=== PATIENT | female | born 1965 | race Caucasian/White ===

== ENCOUNTER → 2019-08-02 | Outpatient (CLI) | payer OTHER ==
[~2019-08-02] MED LIST: HYDACE5 PO; IBUP800 PO
[2019-08-03 10:31] LABS: Candida species (DNA Probe) Negative (NEGATIVE); G. vaginalis (DNA Probe) Negative (NEGATIVE); T. vaginalis (DNA Probe) Positive (NEGATIVE)
== END ==
LOC: LAB SHORT 17:20 → LAB 17:20
PROVIDERS: Nurse Practitioner Family
DX: N89.8 Other specified noninflammatory disorders of vagina (principal)
CPT/HCPCS: 87480; 87510; 87660

== ENCOUNTER 2019-08-29 18:06 | Emergency (ER) | payer OTHER ==
[~2019-08-29] VITALS: Ht 167.6 cm; Wt 59.0 kg
== END 2019-08-29 21:55 | disposition home or self-care (01) ==
LOC: ER 18:06
DX: S80.02XA Contusion of left knee, initial encounter (principal); Z88.0 Allergy status to penicillin; W20.8XXA Other cause of strike by thrown, projected or falling object, initial encounter
CPT/HCPCS: 73562-LT; 99283-25

== ENCOUNTER 2021-09-08 11:09 | Emergency (ER) | payer OTHER ==
[~2021-09-08] VITALS: Ht 167.6 cm; Wt 59.0 kg
[2021-09-08 12:00] LABS: BASOPHILS ABSOLUTE AUTO 0.04 K/mm3 (0.00-0.23); BASOPHILS PERCENT AUTO 1 % (0-2); EOSINOPHILS ABSOLUTE AUTO 0.12 K/mm3 (0.00-0.68); EOSINOPHILS PERCENT AUTO 2 % (0-6); Hematocrit 44.5 % (33.0-51.0); Hemoglobin 14.7 g/dL (11.5-16.0); IMMATURE GRAN ABSOLUTE AUTO 0.01 K/mm3 (0.00-0.10); IMMATURE GRAN PERCENT AUTO 0 % (0-1); LYMPHOCYTES ABSOLUTE AUTO 2.53 K/mm3 (0.84-5.20); LYMPHOCYTES PERCENT AUTO 33 % (21-46); MONOCYTES ABSOLUTE AUTO 0.64 K/mm3 (0.16-1.47); MONOCYTES PERCENT AUTO 8 % (4-13); Mean Corpuscular HGB 30.1 pg (26.0-34.0); Mean Corpuscular Volume 91 fL (80-100); Mean Platelet Volume 9.4 fL (9.1-12.4); NEUTROPHILS ABSOLUTE AUTO 4.41 K/mm3 (1.96-9.15); NEUTROPHILS PERCENT AUTO 57 % (41-73); Platelet Count 341 K/mm3 (150-400); RDW Coefficient Variation 12.9 % (11.7-14.2); RDW Standard Deviation 42.6 fL (35.1-46.3); Red Blood Cell Count 4.89 M/mm3 (3.80-5.20); White Blood Cell Count 7.75 K/mm3 (4.00-11.30)
[2021-09-08 12:19] LABS: Albumin, Blood 4.1 g/dL (3.4-5.0); Albumin/Globulin Ratio 1.2 (0.8-1.8); Bilirubin, Total 0.5 mg/dL (0.1-1.0); Bun/Creatinine Ratio 25.1 (12.0-20.0); Calcium, Blood 9.6 mg/dL (8.5-10.1); Creatinine, Blood 0.76 mg/dL (0.40-1.00); Globulin, Blood 3.5 g/dL (2.2-4.0); Potassium, Blood 3.7 mmol/L (3.5-5.5); Total Protein, Blood 7.6 g/dL (6.4-8.2)
[2021-09-08] MEDS ORDERED: Aspirin EC81 MG PO (14:27)
[2021-09-08] MEDS ORDERED: Toprol Xl25 MG PO (14:27)
== END 2021-09-08 15:34 | disposition home or self-care (01) ==
LOC: ER 11:09
PROVIDERS: Physician Assistant
DX: I63.89 Other cerebral infarction (principal); R47.1 Dysarthria and anarthria; G81.91 Hemiplegia, unspecified affecting right dominant side; I10 Essential (primary) hypertension; Z88.0 Allergy status to penicillin; Z79.899 Other long term (current) drug therapy
CPT/HCPCS: 36415; 70450; 71045; 80053; 85025; 93005; 93010; A9270

== ENCOUNTER → 2021-10-06 | Outpatient (CLI) | payer OTHER ==
[~2021-10-06] MED LIST changes: +Aspirin EC81 MG PO; +Toprol Xl25 MG PO
[2021-10-09 09:20] LABS: Stool Occult Bld Immuno 1 Positive (NEGATIVE)
== END | disposition home or self-care (01) ==
LOC: LAB SHORT 08:00 → LAB 08:00
PROVIDERS: Registered Nurse
DX: Z12.12 Encounter for screening for malignant neoplasm of rectum (principal); Z12.11 Encounter for screening for malignant neoplasm of colon
CPT/HCPCS: G0328

== ENCOUNTER 2022-08-07 08:27 | Day surgery (SDC) | payer OTHER ==
[~2022-08-07] VITALS: Ht 167.6 cm; Wt 60.0 kg
[2022-08-07] MEDS ORDERED: NAPR500 (08:39)
[2022-08-07] MEDS ORDERED: ELIQUIS2.5 MG (08:39)
[2022-08-07 10:05] VITALS: BP 132/80
--- NOTE | 2022-08-07 10:23 | NUR ---
08/07/22 1023 Mohini Vazqeuz LATE ENTRY: PT VERY TEARFUL SHE HAD POOR PREP AND THE PROCEDURE NEEDS TO BE REPEATED. SHE WAS TEARFUL UPON DISCHARGE WELL.
== END 2022-08-07 10:23 | disposition home or self-care (01) ==
LOC: ORSCSDS 08:27
PROVIDERS: Internal Medicine Gastroenterology
PROC: 0DJD8ZZ Inspection of Lower Intestinal Tract, Via Natural or Artificial Opening Endoscopic (ICD-10-PCS; principal; 2022-08-07 09:30)
DX: R19.5 Other fecal abnormalities (principal); I10 Essential (primary) hypertension; K59.00 Constipation, unspecified; I63.9 Cerebral infarction, unspecified; F17.210 Nicotine dependence, cigarettes, uncomplicated; Z79.82 Long term (current) use of aspirin; Z79.01 Long term (current) use of anticoagulants; Z79.899 Other long term (current) drug therapy
CPT/HCPCS: J2704; J7120

== ENCOUNTER 2024-08-10 20:40 | Inpatient (IN) | payer OTHER ==
[~2024-08-10] VITALS: Ht 170.2 cm; Wt 66.1 kg
[~2024-08-10 20:40] MED LIST changes: +ELIQUIS2.5 MG PO; +NAPR500
[2024-08-10 21:37] LABS: BASOPHILS ABSOLUTE AUTO 0.03 K/mm3 (0.00-0.23); BASOPHILS PERCENT AUTO 0 % (0-2); EOSINOPHILS ABSOLUTE AUTO 0.12 K/mm3 (0.00-0.68); EOSINOPHILS PERCENT AUTO 2 % (0-6); Hematocrit 38.6 % (33.0-51.0); Hemoglobin 13.3 g/dL (11.5-16.0); IMMATURE GRAN ABSOLUTE AUTO 0.01 K/mm3 (0.00-0.10); IMMATURE GRAN PERCENT AUTO 0 % (0-1); LYMPHOCYTES ABSOLUTE AUTO 1.82 K/mm3 (0.84-5.20); LYMPHOCYTES PERCENT AUTO 26 % (21-46); MONOCYTES ABSOLUTE AUTO 0.39 K/mm3 (0.16-1.47); MONOCYTES PERCENT AUTO 6 % (4-13); Mean Corpuscular HGB 30.7 pg (26.0-34.0); Mean Corpuscular HGB Conc 34.5 g/dL (31.5-36.5); Mean Corpuscular Volume 89 fL (80-100); Mean Platelet Volume 9.3 fL (9.1-12.4); NEUTROPHILS ABSOLUTE AUTO 4.59 K/mm3 (1.96-9.15); NEUTROPHILS PERCENT AUTO 66 % (41-73); Platelet Count 330 K/mm3 (150-400); RDW Coefficient Variation 12.8 % (11.7-14.2); RDW Standard Deviation 42.3 fL (35.1-46.3); Red Blood Cell Count 4.33 M/mm3 (3.80-5.20); White Blood Cell Count 6.96 K/mm3 (4.00-11.30)
[2024-08-10 22:01] LABS: Albumin, Blood 3.7 g/dL (3.4-5.0); Bilirubin, Total 0.2 mg/dL (0.1-1.0); Bun/Creatinine Ratio 24.5 (12.0-20.0); Calcium, Blood 8.7 mg/dL (8.5-10.1); Creatinine, Blood 0.78 mg/dL (0.40-1.00); Globulin, Blood 3.6 g/dL (2.2-4.0); Potassium, Blood 3.6 mmol/L (3.5-5.5); Total Protein, Blood 7.3 g/dL (6.4-8.2)
[2024-08-10] MEDS ORDERED: LOSA50 PO (22:43)
[2024-08-10] MEDS ORDERED: AMLODIPINE BES2.5 MG PO (22:44)
[2024-08-10] MEDS ORDERED: METO100ER PO (22:44)
[2024-08-10] MEDS ORDERED: Acetaminophen 325 MG TABLET PO PRN (23:25)
[2024-08-10] MEDS ORDERED: Ondansetron HCl 2 MG / ML 2ML Vial IV PRN (23:25)
[2024-08-10 23:28] LABS: Source, Urine Clean Catch
[2024-08-10 23:33] LABS: Bilirubin, Urine Neg (Neg); Blood, Urine 4+ (Neg); Glucose Qualitative, Urine Neg (Neg); Ketones, Urine Neg (Neg); Leukocyte Esterase, Urine 1+ (Neg); Nitrite, Urine Neg (Neg); Protein, Urine 1+ (Neg); Urobilinogen, Urine NORM (Normal)
[2024-08-10 23:46] LABS: Appearance, Urine Clear (Clear); Color, Urine Pale Yellow (P-Yellow)
[2024-08-10 23:47] LABS: Bacteria Mod /hpf; Squamous Epithelial Cells Few /hpf (Few); White Blood Cells, Urine 0-2 /hpf (0-5)
[2024-08-11] VITALS (8 sets, daily range): BP systolic 142–168; BP diastolic 95–111
[2024-08-11] MEDS ORDERED: ZYRTEC-D ER 51 EACH PO (01:38)
--- NOTE | 2024-08-11 02:44 | NUR ---
MRI SCREENING FORM FILLED OUT WITH FAMILY AND FAXED TO IMAGING.
[2024-08-11 06:10] LABS: BASOPHILS ABSOLUTE AUTO 0.02 K/mm3 (0.00-0.23); BASOPHILS PERCENT AUTO 0 % (0-2); EOSINOPHILS ABSOLUTE AUTO 0.15 K/mm3 (0.00-0.68); EOSINOPHILS PERCENT AUTO 2 % (0-6); Hematocrit 40.7 % (33.0-51.0); Hemoglobin 13.3 g/dL (11.5-16.0); IMMATURE GRAN ABSOLUTE AUTO 0.01 K/mm3 (0.00-0.10); IMMATURE GRAN PERCENT AUTO 0 % (0-1); LYMPHOCYTES PERCENT AUTO 29 % (21-46); MONOCYTES ABSOLUTE AUTO 0.46 K/mm3 (0.16-1.47); MONOCYTES PERCENT AUTO 7 % (4-13); Mean Corpuscular HGB 29.6 pg (26.0-34.0); Mean Corpuscular HGB Conc 32.7 g/dL (31.5-36.5); Mean Corpuscular Volume 90 fL (80-100); Mean Platelet Volume 9.4 fL (9.1-12.4); NEUTROPHILS ABSOLUTE AUTO 3.95 K/mm3 (1.96-9.15); NEUTROPHILS PERCENT AUTO 61 % (41-73); Platelet Count 306 K/mm3 (150-400); RDW Coefficient Variation 12.8 % (11.7-14.2); RDW Standard Deviation 42.9 fL (35.1-46.3); White Blood Cell Count 6.49 K/mm3 (4.00-11.30)
--- NOTE | 2024-08-11 06:14 | NUR ---
SHIFT SUMMARY; AFTER ADMIT, PATIENT HAS BEEN SLEEPING WELL. FAMILY WENT HOME. UP TO BS WITH 2 ASSIST, NO WALKER. JUST PIVOT. SCDS APPLIED. BP ELEVATED, DR JOSEPH INFORMED, NO NEW ORDERS GIVEN. TELE SR 61.
[2024-08-11 06:37] LABS: Albumin, Blood 3.7 g/dL (3.4-5.0); Albumin/Globulin Ratio 1.2 (0.8-1.8); Bilirubin, Total 0.3 mg/dL (0.1-1.0); Bun/Creatinine Ratio 21.1 (12.0-20.0); Calcium, Blood 8.8 mg/dL (8.5-10.1); Creatinine, Blood 0.71 mg/dL (0.40-1.00); Globulin, Blood 3.1 g/dL (2.2-4.0); Potassium, Blood 3.1 mmol/L (3.5-5.5); Total Protein, Blood 6.8 g/dL (6.4-8.2)
[2024-08-11 06:44] LABS: CHOL/HDL RATIO 2.8; Cholesterol 182 mg/dL (50-200); HDL Cholesterol 66 mg/dL (>39); LDL/HDL RATIO 1.4; Low Density Lipoprotein Chol 90 mg/dL (0-110); Triglycerides 128 mg/dL (30-160); Very Low Density Lipoprot Chol 25 mg/dL (6-32)
[2024-08-11] MEDS ORDERED: Potassium Chloride 20 MEQ TabCR PO ONE ×2 (08:10→13:55)
[2024-08-11] MEDS ORDERED: Atorvastatin 40 MG Tab PO SCH (09:00)
[2024-08-11] MEDS ORDERED: Aspirin 81 MG Chew PO SCH (09:00)
[2024-08-11] MEDS ORDERED: Apixaban 5 MG Tab PO SCH (09:00)
--- NOTE | 2024-08-11 17:58 | NUR ---
A&OX4, FULL CODE, TELE SINUS RHYTHM @62, USES WALKER IN ROOM WITH 1 PERSON ASSIST, LEFT SIDED WEAKNESS DUE TO PRIOR STROKES, SPEECH EVAL & FOOD BITE SIZE, MEDS WITH APPLE SAUCE & ONE AT A TIME, MRI TODAY & RESULTS WITH CVA, IV IN LEFT HAND, SCDS APPLIED ON LOWER EXTREMITIES, PT/OT EVAL & SUGGESTING HOME HEALTH WHEN DC, NO OTHER CONCERNS AT THIS TIME.
[2024-08-12 04:12] VITALS: BP 133/88
--- NOTE | 2024-08-12 05:53 | NUR ---
SHIFT SUMMARY; PATIENT SLEPT IN LONG INTERVALS, TELE SR 76. GAVE TYLENOT PRN DOSE BEDTIME FOR GENERAL DISCOMFORTS
[2024-08-12 07:29] VITALS: BP 152/103
[2024-08-12 09:28] LABS: Calcium, Blood 8.9 mg/dL (8.5-10.1); Creatinine, Blood 0.78 mg/dL (0.40-1.00); Potassium, Blood 3.6 mmol/L (3.5-5.5)
[2024-08-12] MEDS ORDERED: Losartan Potassium 25 MG Tab PO SCH (11:00)
[2024-08-12] MEDS ORDERED: ATORVASTATIN CA80 M1 PO (13:48)
[2024-08-12] MEDS ORDERED: ASPI81CH PO (13:49)
--- NOTE | 2024-08-12 15:01 | NUR ---
DISCHARGED HOME WITH HOME HEALTH, WORKED WITH PT/OT/ST TODAY, DISCAHRGE INSTRUCTIONS GIVEN TO PATIENT AND FRIEND, BOTH STATED UNDERSTANDING OF MEDICATIONS, FOLLOW UP AND INSTRUCTIONS. BOTH DENIED FURTHER QUESTIONS, PLEASANT TO CARE
[2024-08-16] MEDS ORDERED: TAMS.4ER PO (20:19)
[2024-08-16] MEDS ORDERED: CIPR500 PO (20:19)
== END 2024-08-12 15:21 | disposition home health service (06) | DRG 65 ==
LOC: ER 20:40 → MEDS 20:41 → ENPENDDIS 08-12 13:45 → MEDS 08-12 15:21
PROVIDERS: Emergency Medicine; Internal Medicine; Student in an Organized Health Care Education/Training Program; ADMIT Student in an Organized Health Care Education/Training Program
DX: I63.81 Other cerebral infarction due to occlusion or stenosis of small artery (principal); G81.94 Hemiplegia, unspecified affecting left nondominant side; I10 Essential (primary) hypertension; I48.0 Paroxysmal atrial fibrillation; R82.998 Other abnormal findings in urine; F17.200 Nicotine dependence, unspecified, uncomplicated; R47.01 Aphasia; R29.706 NIHSS score 6; R47.1 Dysarthria and anarthria; E87.6 Hypokalemia; Z96.642 Presence of left artificial hip joint; I69.391 Dysphagia following cerebral infarction; I69.392 Facial weakness following cerebral infarction; Z88.0 Allergy status to penicillin; Z79.01 Long term (current) use of anticoagulants; Z79.1 Long term (current) use of non-steroidal anti-inflammatories (NSAID); Z79.82 Long term (current) use of aspirin
CPT/HCPCS: 36415; 70450; 70496; 70498; 70551; 80048; 80053; 80061; 81001; 82947; 83735; 85025; 87086; 92526; 92610; 93005; 93010; 93306; 93931; 97110; 97162; 97165; 97530; 99285-25; A9270; G0378; Q9967

== ENCOUNTER → 2024-08-16 | Outpatient (CLI) | payer OTHER ==
[~2024-08-16] MED LIST changes: +AMLODIPINE BES2.5 MG PO; +ASPI81CH PO; +ATORVASTATIN CA80 M1 PO; +CIPR500 PO; +LOSA50 PO; +METO100ER PO; +TAMS.4ER PO; +ZYRTEC-D ER 51 EACH PO
== END | disposition home or self-care (01) ==
LOC: LAB 14:20 → LAB SHORT 14:20
DX: R82.998 Other abnormal findings in urine (principal)
CPT/HCPCS: 87086

== ENCOUNTER → 2024-09-19 | Outpatient (CLI) | payer OTHER ==
[2024-09-19 18:59] LABS: Red Blood Cells, Urine TNTC /hpf (0-2)
== END ==
LOC: LAB 15:50 → LAB SHORT 15:50
PROVIDERS: Family Medicine
DX: N20.1 Calculus of ureter (principal)
CPT/HCPCS: 81015; 87086